=== PATIENT | male | born 1965 | race American Indian/Alaskan Native ===

== ENCOUNTER 2019-08-18 14:09 | Outpatient (CLI) | payer OTHER ==
--- NOTE | 2019-08-18 16:50 | XRay Report ---
RIGHT KNEE 3 VIEWS INDICATION / CLINICAL INFORMATION: RIGHT KNEE PAIN. COMPARISON: None available. FINDINGS: No significant skeletal abnormality. Signer Name: Alphonso Brown MD FACR Signed: 08/18/2019 4:45 PM Workstation Name: [id number]
--- NOTE | 2019-08-18 17:15 | XRay Report ---
LUMBAR SPINE 3 VIEWS INDICATION / CLINICAL INFORMATION: BACK PAIN COMPARISON: None available. FINDINGS: BONES / JOINT(S): No acute fracture or subluxation. Degenerative disc disease L3-S1 where changes are moderate. SOFT TISSUES: No significant abnormality. ADDITIONAL FINDINGS: None. Signer Name: Anthony Leonard MD Signed: 08/18/2019 5:10 PM Workstation Name: [id number]
== END 2019-08-18 14:10 | disposition home or self-care (01) ==
LOC: SPVIMAG 14:09
PROVIDERS: ATTEND Urology
DX: M25.561 Pain in right knee (principal); M54.5 Low back pain
CPT/HCPCS: 72100